=== PATIENT | female | born 1995 | race Hispanic/Latino ===

== ENCOUNTER 2017-09-16 15:50 | Emergency (ER) | payer OTHER ==
[2017-09-16] MEDS ORDERED: ONDANSETRON 4 MG/2 ML VIAL ONE (16:23)
[2017-09-16 16:43] LABS: Absolute Lymphocytes (CBC) 3.6 K/uL (0.7-4.9); Absolute Monocytes 0.6 K/uL (0.1-1.3); Absolute Neutrophil 4.3 K/uL (1.8-8.0); Basophils % 0.6 % (0-1.3); Eosinophils % 4.8 % (0-4.4); Hematocrit 35.3 % (36.0-45.0); Lymphocytes % 40.3 % (15.3-44.8); MCH 28.7 pg (27.0-35.0); MCV 86.6 fL (80-100); MPV 8.3 fL (7.6-11.3); Monocytes % 6.4 % (3.3-12.3); RBC Red Blood Cell Count 4.07 M/uL (3.86-4.86)
[2017-09-16 16:53] LABS: ALT/SGPT 39 U/L (12-78); AST/SGOT 28 U/L (15-37); Albumin 3.5 g/dL (3.4-5.0); Alkaline Phosphatase 115 U/L (45-117); BUN Blood Urea Nitrogen 12 mg/dL (7-18); Bicarbonate 27 mmol/L (21-32); Bilirubin Direct < 0.1 mg/dL (0-0.2); Bilirubin Total 0.2 mg/dL (0.2-1.0); Glucose Level 96 mg/dL (74-106); Lipase 199 U/L (73-393); Protein, Total 7.4 g/dL (6.4-8.2); Sodium Level 143 mmol/L (136-145)
--- NOTE | 2017-09-16 17:05 | RAD REPORT ---
EXAM DESCRIPTION: US - Abdomen Exam Limited - 09/16/2017 4:49 pm CLINICAL HISTORY: r/o GB;Abd pain COMPARISON: No comparisons FINDINGS: The gallbladder demonstrates no gallstones. No pericholecystic fluid or gallbladder wall t hickening. The common bile duct is normal measuring 4 mm. The liver demonstrates no findings of intrahepatic biliary dilatation. IMPRESSION: Unremarkable examination.
--- NOTE | 2017-09-16 17:06 | ER ---
Nurse's Notes [facility] Name: Jammie aNsh Age: 22 yrs Sex: Female : 1995 Arrival Date: 09/16/2017 Time: 15:53 Bed 24 Private MD: None, None Diagnosis: Right upper quadrant abdominal tenderness;Abdominal and pelvic pain Presentation: 09/16 15:56 Presenting complaint: Patient states: i have this sharp pain on my R upper abd; hj happened today, it gets worse after i eat; reports nausea and vomiting; reports constipation; reports fever and chills;. Transition of care: patient was not received from another setting of care. Onset of symptoms was September 16, 2017. Risk Assessment: Do you want to hurt yourself or someone else? Patient reports no desire to harm self or others. Initial Sepsis Screen: Does the patient meet any 2 criteria? No. Patient's initial sepsis screen is negative. Does the patient have a suspected source of infection? No. Patient's initial sepsis screen is negative. Care prior to arrival: None. 15:56 Method Of Arrival: Ambulatory 15:56 Acuity: SHAMEKA 3 Triage Assessment: 15:58 General: Appears in no apparent distress. uncomfortable, Behavior is calm, cooperative, hj appropriate for age. Pain: Complains of pain in right upper quadrant Pain currently is 6 out of 10 on a pain scale. GI: Reports upper abdominal pain, constipation, nausea, vomiting. 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 - Social history:: Smoking status: Patient/guardian denies using tobacco, Patient/guardian denies using alcohol. - Ebola Screening: : Patient negative for fever greater than or equal to 101.5 degrees Fahrenheit, and additional compatible Ebola Virus Disease symptoms Patient denies exposure to infectious person Patient denies travel to an Ebola-affected area in the 21 days before illness onset. Screenin:58 Abuse screen: Denies threats or abuse. Denies injuries from another. Nutritional hj screening: No deficits noted. Tuberculosis screening: No symptoms or risk factors identified. Fall Risk None identified. Assessment: 15:59 GI: Bowel sounds present X 4 quads. Abd is soft Abdomen is tender to palpation. hj 16:32 General: Appears in no apparent distress. uncomfortable, Behavior is calm, cooperative. mg2 Pain: Complains of pain in right upper quadrant Pain does not radiate. Pain currently is 5 out of 10 on a pain scale. Quality of pain is described as aching, Pain began gradually, this morning Is intermittent, Alleviated by rest. Neuro: Level of Consciousness is awake, alert, obeys commands, Oriented to person, place, time, situation. Cardiovascular: Capillary refill < 3 seconds Patient's skin is warm and dry. Respiratory: Airway is patent Respiratory effort is even, unlabored, Respiratory pattern is regular, symmetrical. : No signs and/or symptoms were reported regarding the genitourinary system. EENT: No signs and/or symptoms were reported regarding the EENT system. Derm: Skin is intact, Skin is pink, warm \T\ dry. normal. Musculoskeletal: No signs and/or symptoms reported regarding the musculoskeletal system. 17:10 Reassessment: Patient appears in no apparent distress at this time. No changes from tl3 previously documented assessment. Patient and/or family updated on plan of care and expected duration. Pain level reassessed. Patient is alert, oriented x 3, equal unlabored respirations, skin warm/dry/pink. Vital Signs: 15:59 BP 128 / 75; Pulse 75; Resp 15; Temp 98.4(O); Pulse Ox 100% on R/A; Weight 82.55 kg; hj Height 5 ft. 2 in. (157.48 cm); Pain 6/10; 17:10 BP 113 / 66; Pulse 71; Resp 18; Pulse Ox 100% ; tl3 15:59 Body Mass Index 33.29 (82.55 kg, 157.48 cm) ED Course: 15:53 Patient arrived in ED. sb2 15:53 None, None is Private Physician. sb2 15:56 [facility] jr8 15:56 Abdoulaye Fermin MD is Attending Physician. jr8 15:57 Triage completed. hj 15:59 Arm band placed on left wrist. hj 15:59 Patient has correct armband on for positive identification. Placed in gown. Bed in low hj position. Call light in reach. Side rails up X 1. Adult w/ patient. 16:00 Urine collected: clean catch specimen, clear, vipin colored. jp3 16:07 Chani Driscoll, RN is Primary Nurse. tl3 16:11 Warm blanket given. Pillow given. jp3 16:23 Inserted saline lock: 22 gauge in right forearm, using aseptic technique. Blood mg2 collected. 16:36 Ultrasound completed. Patient tolerated well. lc3 16:43 ultra sound complete. tl3 16:48 US Abdomen Limited In Process Unspecified. EDMS 17:05 Negrita Yan MD is Referral Physician. jr8 17:10 IV discontinued, intact, bleeding controlled, No redness/swelling at site. Pressure tl3 dressing applied. 17:17 No provider procedures requiring assistance completed. tl3 Administered Medications: 16:23 Drug: Zofran 4 mg Route: IVP; Site: right forearm; mg2 17:10 Follow up: Response: No adverse reaction tl3 Outcome: 17:05 Discharge ordered by . jr8 17:10 Discharged to home ambulatory. tl3 17:10 Condition: stable 17:10 Discharge instructions given to patient, Instructed on discharge instructions, follow up and referral plans. medication usage, Demonstrated understanding of instructions, follow-up care, medications, Prescriptions given X 2. 17:18 Patient left the ED. tl3 Signatures: Dispatcher [employer] EDMS Mathieu Lopez PA PA jr8 Walter Caballero RN RN hj Yessenia Bright Sheri sb2 Chani Driscoll, RN RN tl3 Yakov Cooper RN RN mg2 Morris Mcgrath jp3
--- NOTE | 2017-09-16 17:06 | EDPHYS ---
Physician Documentation [facility] Name: Jammie Nash Age: 22 yrs Sex: Female : 1995 Arrival Date: 09/16/2017 Time: 15:53 Bed 24 Private MD: None, None ED Physician Abdoulaye Fermin HPI: 09/16 17:03 This 22 yrs old Female presents to ER via Ambulatory with complaints of jr8 Abdominal Pain. 17:03 The patient presents with abdominal pain in the right upper quadrant. Onset: The jr8 symptoms/episode began/occurred gradually, 1 month(s) ago, and became worse today, and became persistent today. The symptoms do not radiate. Associated signs and symptoms: Pertinent positives: nausea. The symptoms are described as sharp. Modifying factors: The symptoms are alleviated by nothing, the symptoms are aggravated by food. Severity of pain: At its worst the pain was moderate in the emergency department the pain has improved. The patient has experienced similar episodes in the past, a few times. The patient has not recently seen a physician. 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 - Social history:: Smoking status: Patient/guardian denies using tobacco, Patient/guardian denies using alcohol. - Ebola Screening: : Patient negative for fever greater than or equal to 101.5 degrees Fahrenheit, and additional compatible Ebola Virus Disease symptoms Patient denies exposure to infectious person Patient denies travel to an Ebola-affected area in the 21 days before illness onset. ROS: 17:03 Eyes: Negative for injury, pain, redness, and discharge, ENT: Negative for injury, jr8 pain, and discharge, Neck: Negative for injury, pain, and swelling, Cardiovascular: Negative for chest pain, palpitations, and edema, Respiratory: Negative for shortness of breath, cough, wheezing, and pleuritic chest pain, Back: Negative for injury and pain, MS/Extremity: Negative for injury and deformity, Skin: Negative for injury, rash, and discoloration, Neuro: Negative for headache, weakness, numbness, tingling, and seizure. 17:03 Abdomen/GI: Positive for abdominal pain, nausea and vomiting, Negative for diarrhea, constipation, abdominal cramps, abdominal distension, anorexia, dysphagia, hematemesis, black/tarry stool, rectal pain, rectal bleeding, bowel incontinence, flatulence. Exam: 17:03 Eyes: Pupils equal round and reactive to light, extra-ocular motions intact. Lids and jr8 lashes normal. Conjunctiva and sclera are non-icteric and not injected. Cornea within normal limits. Periorbital areas with no swelling, redness, or edema. ENT: Nares patent. No nasal discharge, no septal abnormalities noted. Tympanic membranes are normal and external auditory canals are clear. Oropharynx with no redness, swelling, or masses, exudates, or evidence of obstruction, uvula midline. Mucous membranes moist. Neck: Trachea midline, no thyromegaly or masses palpated, and no cervical lymphadenopathy. Supple, full range of motion without nuchal rigidity, or vertebral point tenderness. No Meningismus. Cardiovascular: Regular rate and rhythm with a normal S1 and S2. No gallops, murmurs, or rubs. Normal PMI, no JVD. No pulse deficits. Respiratory: Lungs have equal breath sounds bilaterally, clear to auscultation and percussion. No rales, rhonchi or wheezes noted. No increased work of breathing, no retractions or nasal flaring. Back: No spinal tenderness. No costovertebral tenderness. Full range of motion. Skin: Warm, dry with normal turgor. Normal color with no rashes, no lesions, and no evidence of cellulitis. MS/ Extremity: Pulses equal, no cyanosis. Neurovascular intact. Full, normal range of motion. Neuro: Awake and alert, GCS 15, oriented to person, place, time, and situation. Cranial nerves II-XII grossly intact. Motor strength 5/5 in all extremities. Sensory grossly intact. Cerebellar exam normal. Normal gait. 17:03 Abdomen/GI: Inspection: abdomen appears normal, Bowel sounds: active, all quadrants, Palpation: soft, in all quadrants, moderate abdominal tenderness, in the right upper quadrant, rebound tenderness, is not appreciated, voluntary guarding, is not appreciated, involuntary guarding, is not appreciated, no appreciated organomegaly, Indicators: McBurney's point is not tender, Sarmiento's sign is negative, Rovsing's sign is negative, Liver: tenderness, is not appreciated. Vital Signs: 15:59 BP 128 / 75; Pulse 75; Resp 15; Temp 98.4(O); Pulse Ox 100% on R/A; Weight 82.55 kg; hj Height 5 ft. 2 in. (157.48 cm); Pain 6/10; 17:10 BP 113 / 66; Pulse 71; Resp 18; Pulse Ox 100% ; tl3 15:59 Body Mass Index 33.29 (82.55 kg, 157.48 cm) hj MDM: 16:07 Patient medically screened. [facility] 17:03 Data reviewed: vital signs, nurses notes, lab test result(s), radiologic studies, [facility] ultrasound. Data interpreted: Pulse oximetry: on room air is 100 %. Interpretation: normal. Counseling: I had a detailed discussion with the patient and/or guardian regarding: the historical points, exam findings, and any diagnostic results supporting the discharge/admit diagnosis, lab results, radiology results, the need for outpatient follow up, a sales professional, to return to the emergency department if symptoms worsen or persist or if there are any questions or concerns that arise at home. 09/16 16:12 Order name: Basic Metabolic Panel [facility] 09/16 16:12 Order name: CBC with Diff; Complete Time: 17: [facility] 09/16 16:12 Order name: Creatinine for Radiology; Complete Time: 17: [facility] 09/16 16:12 Order name: Hepatic Function; Complete Time: 17: [facility] 09/16 16:12 Order name: Lipase; Complete Time: 17: [facility] 09/16 16:13 Order name: Basic Metabolic Panel; Complete Time: 17:03 [facility] 09/16 16:12 Order name: Urine Test (obtain specimen); Complete Time: 16:23 [facility] 09/16 16:12 Order name: IV Saline Lock; Complete Time: 16: [facility] 09/16 16:12 Order name: Labs collected and sent; Complete Time: 16: [facility] 09/16 16:12 Order name: Urine Dipstick-Ancillary (obtain specimen); Complete Time: 16:23 [facility] 09/16 16:13 Order name: US Abdomen Limited; Complete Time: 17: [facility] 09/16 16:15 Order name: Urine Dipstick--Ancillary (enter results) ag 09/16 16:15 Order name: Urine --Ancillary (enter results) ag Administered Medications: 16:23 Drug: Zofran 4 mg Route: IVP; Site: right forearm; mg2 17:10 Follow up: Response: No adverse reaction tl3 Disposition: 17:42 Co-signature as Attending Physician, Abdoulaye Fermin MD Available for consultation at ps1 all times. . Disposition: 09/16/17 17:05 Discharged to Home. Impression: Right upper quadrant abdominal tenderness, Abdominal and pelvic pain. - Condition is Stable. - Discharge Instructions: Cholecystitis, Gastritis, Adult, Cholelithiasis, Cholestasis of . - Prescriptions for Ultracet 37.5- 325 mg Oral Tablet - take 1 tablet by ORAL route every 6 hours - for up to 5 days; do not exceed 8 tablets per day.; 30 tablet. Zofran 4 mg Oral Tablet - take 1 tablet by ORAL route every 12 hours As needed; 20 tablet. - Medication Reconciliation Form, Thank You Letter, Antibiotic Education, Prescription Opioid Use form. - Follow up: Negrita Yan MD; When: 2 - 3 days; Reason: Recheck today's complaints, Continuance of care, Re-evaluation by your physician. - Problem is new. - Symptoms have improved. Signatures: Dispatcher [employer] EDMS Mathieu Lopez PA PA jr8 Walter Caballero RN RN hj Abdoulaye Fermin MD MD ps1 Chani Driscoll RN RN tl3 Yakov Cooper RN RN mg2 Corrections: (The following items were deleted from the chart) 17:18 17:05 09/16/2017 17:05 Discharged to Home. Impression: Right upper quadrant abdominal tl3 tenderness; Abdominal and pelvic pain. Condition is Stable. Forms are Medication Reconciliation Form, Thank You Letter, Antibiotic Education, Prescription Opioid Use. Follow up: Negrita Yan; When: 2 - 3 days; Reason: Recheck today's complaints, Continuance of care, Re-evaluation by your physician. Problem is new. Symptoms have improved. jr8
[2017-09-16 17:20] LABS: Urine Blood TRACE (NEG); Urine Glucose NEGATIVE (NEG); Urine Protein NEGATIVE (NEG); Urine pH 6.5 (5.0-7.0)
== END 2017-09-16 17:18 | disposition home or self-care (01) ==
LOC: ER 15:50
DX: R10.2 Pelvic and perineal pain (principal)
CPT/HCPCS: 36415; 76705; 80048; 80076; 81003; 81025; 83690; 85025; 96374; 99284; J2405